=== PATIENT | female | born 1960 | race Caucasian/White ===

== ENCOUNTER → 2016-12-01 | Outpatient (CLI) | payer OTHER ==
[~2016-12-01] MED LIST: ASPI81TA82 PO; BIOTCAP PO; CARD240C6 PO; FISH1000 PO; FLOV44AE IN; LOSA25 PO; METO50TA PO; ROSU10 PO; VITA20003 PO; [UNRECOGNIZED DRUG - OTHER] PO
[2016-12-01 09:59] LABS: ALKALINE PHOSPHATASE 61 U/L (45-117); ALT (GPT) 79 U/L (10-53); ANION GAP 6 MEQ/L (5-15); AST (GOT) 39 U/L (15-37); BICARBONATE 28.7 MEQ/L (21.0-32.0); BLOOD UREA NITROGEN 19 MG/DL (7-18); CHLORIDE 105 MEQ/L (98-107); FREE T4 1.32 NG/DL (0.76-1.46); GLOMERULAR FILTRATION RATE 71 ML/MIN (>89); GLUCOSE,FASTING 162 MG/DL (74-99); HDL CHOLESTEROL 24.5 MG/DL (40.0-60.0); LDL CHOLESTEROL 116 MG/DL (0-99); POTASSIUM 3.9 MEQ/L (3.5-5.1); SODIUM (NA) 140 MEQ/L (136-145); TOTAL BILIRUBIN ADULT 0.3 MG/DL (0.2-1.0)
[2016-12-01 10:18] LABS: MICRO ALBUMIN RANDOM URINE RAW 19.8 MG/L (0.0-30.0)
[2016-12-01 10:34] LABS: HEMOGLOBIN A1a 0.6 %; HEMOGLOBIN A1b 1.6 %; HEMOGLOBIN Ao 84.4 %; HEMOGLOBIN LA1C 2.3 %; HEMOGLOBIN P3 3.7 %
[2016-12-01 13:42] LABS: FERRITIN 131 NG/ML (8-252); FOLLICLE STIMULATING HORMONE 55.4 mIU/mL; LUTEINIZING HORMONE 18.9 mIU/mL; TRANSFERRIN IRON PROFILE 292 MG/DL (200-360)
[2016-12-01 13:44] LABS: BHCG SCREEN QUALITATIVE 2 MIU/ML (0-5)
[2016-12-05 23:09] LABS: BIOAVAILABLE TESTOSTERONE 5.2 ng/dL (())
== END ==
LOC: PLAB 06:57
PROVIDERS: ATTEND Internal Medicine Endocrinology, Diabetes & Metabolism
DX: E78.5 Hyperlipidemia, unspecified (principal); E11.9 Type 2 diabetes mellitus without complications; I10 Essential (primary) hypertension; E03.9 Hypothyroidism, unspecified; E55.9 Vitamin D deficiency, unspecified; L25.9 Unspecified contact dermatitis, unspecified cause; Z79.899 Other long term (current) drug therapy
CPT/HCPCS: 80053; 80061; 82043; 82306; 82626; 82728; 83001; 83002; 83036; 83540; 83550; 84146; 84402; 84403; 84439; 84443; 84480; 84703; 86038

== ENCOUNTER → 2017-06-18 | Outpatient (CLI) | payer OTHER ==
[2017-06-18 13:39] LABS: ANION GAP 6 MEQ/L (5-15); AST (GOT) 24 U/L (15-37); BICARBONATE 28.1 MEQ/L (21.0-32.0); BLOOD UREA NITROGEN 23 MG/DL (7-18); CHLORIDE 106 MEQ/L (98-107); GLOMERULAR FILTRATION RATE 75 ML/MIN (>89); GLUCOSE,FASTING 120 MG/DL (74-99); POTASSIUM 4.6 MEQ/L (3.5-5.1); SODIUM (NA) 140 MEQ/L (136-145)
[2017-06-18 13:47] LABS: ALKALINE PHOSPHATASE 49 U/L (45-117); ALT (GPT) 43 U/L (10-53); LDL CHOLESTEROL 111 MG/DL (0-99); TOTAL BILIRUBIN ADULT 0.4 MG/DL (0.2-1.0)
[2017-06-18 14:25] LABS: HEMOGLOBIN A1a 1.3 %; HEMOGLOBIN A1b 0.8 %; HEMOGLOBIN F 0.8 %; HEMOGLOBIN P3 3.6 %
== END ==
LOC: OLAB 10:34
PROVIDERS: ATTEND Internal Medicine Endocrinology, Diabetes & Metabolism
DX: E78.5 Hyperlipidemia, unspecified (principal)
CPT/HCPCS: 80053; 80061; 83036

== ENCOUNTER → 2017-08-28 | Outpatient (CLI) | payer OTHER ==
[2017-08-28 12:48] LABS: BICARBONATE 28.8 MEQ/L (21.0-32.0); POTASSIUM 4.4 MEQ/L (3.5-5.1)
== END ==
LOC: OLAB 09:47
PROVIDERS: ATTEND Internal Medicine Cardiovascular Disease
DX: N18.1 Chronic kidney disease, stage 1 (principal)
CPT/HCPCS: 80048

== ENCOUNTER → 2017-09-10 | Outpatient (CLI) | payer OTHER ==
[2017-09-10 13:47] LABS: ALT (GPT) 40 U/L (10-53); ANION GAP 5 MEQ/L (5-15); AST (GOT) 23 U/L (15-37); BICARBONATE 30.1 MEQ/L (21.0-32.0); BLOOD UREA NITROGEN 16 MG/DL (7-18); CHLORIDE 103 MEQ/L (98-107); GLOMERULAR FILTRATION RATE 80 ML/MIN (>89); GLUCOSE,FASTING 101 MG/DL (74-99); POTASSIUM 4.2 MEQ/L (3.5-5.1); SODIUM (NA) 138 MEQ/L (136-145)
[2017-09-10 13:56] LABS: ALKALINE PHOSPHATASE 56 U/L (45-117); FREE T4 1.16 NG/DL (0.76-1.46); HDL CHOLESTEROL 31.5 MG/DL (40.0-60.0); LDL CHOLESTEROL 117 MG/DL (0-99); TOTAL BILIRUBIN ADULT 0.4 MG/DL (0.2-1.0)
[2017-09-10 17:14] LABS: HEMOGLOBIN A1a 1.1 %; HEMOGLOBIN A1b 0.8 %; HEMOGLOBIN Ao 84.8 %; HEMOGLOBIN F 0.9 %; HEMOGLOBIN LA1C 2.2 %; HEMOGLOBIN P3 3.9 %
== END ==
LOC: CLAB 12:47
PROVIDERS: ATTEND Internal Medicine Endocrinology, Diabetes & Metabolism
DX: E11.9 Type 2 diabetes mellitus without complications (principal); I10 Essential (primary) hypertension; E78.5 Hyperlipidemia, unspecified; E03.9 Hypothyroidism, unspecified; E55.9 Vitamin D deficiency, unspecified
CPT/HCPCS: 36415; 80053; 80061; 82306; 83036; 84439; 84443

== ENCOUNTER 2017-11-26 10:54 | Observation (INO) | payer OTHER ==
[2017-11-26] VITALS (7 sets, daily range): BP systolic 103–129; BP diastolic 63–80; PULSE 65–86; RESP 18–20; TEMP 98.2–99.1; O2SAT 94–96
[~2017-11-26] VITALS: Ht 165.1 cm; Wt 91.6 kg
[2017-11-26] MEDS ORDERED: CHLORHEXIDINE GLUCONATE 2 % 1 PACK (2 CLOTHS) TOPICAL PRN (11:45)
[2017-11-26] MEDS ORDERED: POVIDONE IODINE 5% (ANTISEPSIS KIT) 4 APPLICATIONS EACH NARE PRN (11:45)
[2017-11-26] MEDS ORDERED: SODIUM CHLORID 0.9% 500 ML IV PRN (11:45)
[2017-11-26] MEDS ORDERED: LACTATED RINGER'S 1000 ML IV PRN (11:45)
[2017-11-26] MEDS ORDERED: METOPROLOL TARTRATE 25 MG TAB PO PRN (11:45)
[2017-11-26] MEDS ORDERED: DEXAMETHASONE SOD PHOS 4 MG/ML VIAL IV ONE (12:00)
[2017-11-26] MEDS ORDERED: PROPOFOL 200 MG/20 ML AMP IV ONE (12:00)
[2017-11-26] MEDS ORDERED: SODIUM CHLORID 0.9% 500 ML INJ 500 ML IV ONE (12:00)
[2017-11-26] MEDS ORDERED: ONDANSETRON HCL 4 MG/2 ML VIAL IV ONE (12:00)
[2017-11-26] MEDS ORDERED: LIDOCAINE HCL 1% PF 5 ML SYRINGE OTHER ONE (12:00)
[2017-11-26] MEDS ORDERED: ROCURONIUM INJ 50 MG/5 ML SYRINGE IV PUSH ONE (12:00)
[2017-11-26 12:09] LABS: AUTOMATED NEUTROPHIL # 4.8 TH/MM3 (1.8-7.7); BASOPHIL # 0.1 TH/MM3 (0-0.2); BASOPHIL % 0.9 % (0.0-2.0); EOSINOPHIL # 0.2 TH/MM3 (0-0.4); EOSINOPHIL % 2.4 % (0.0-4.0); HEMATOCRIT 47.6 % (35.0-46.0); HEMOGLOBIN 16.7 GM/DL (11.6-15.3); LYMPH % 20.5 % (9.0-44.0); LYMPHOCYTE # 1.5 TH/MM3 (1.0-4.8); MEAN CELL VOLUME 89.6 FL (80.0-100.0); MEAN CORPUSCULAR HEMOGLOBIN 31.4 PG (27.0-34.0); MEAN PLATELET VOLUME 8.7 FL (7.0-11.0); MONO % 9.5 % (0.0-8.0); MONOCYTE # 0.7 TH/MM3 (0-0.9); NEUT % 66.7 % (16.0-70.0); PLATELET COUNT 241 TH/MM3 (150-450); RED BLOOD COUNT 5.31 MIL/MM3 (4.00-5.30); RED CELL DISTRIBUTION WIDTH 12.9 % (11.6-17.2); WHITE BLOOD COUNT 7.2 TH/MM3 (4.0-11.0)
[2017-11-26 12:19] LABS: INTERNATIONAL NORMALIZED RATIO 1.1 RATIO; PROTHROMBIN TIME - PATIENT 11.3 SEC (9.8-11.6)
[2017-11-26] MEDS ORDERED: SPIR100T PO (12:21)
[2017-11-26] MEDS ORDERED: OMEGCAP PO (12:21)
[2017-11-26] MEDS ORDERED: FLEC1TAB8 PO (12:21)
[2017-11-26] MEDS ORDERED: METO25TA3 PO (12:21)
[2017-11-26] MEDS ORDERED: ROSU10 PO (12:21)
[2017-11-26] MEDS ORDERED: ECASA81 PO (12:21)
[2017-11-26] MEDS ORDERED: LEXA10TA PO (12:21)
[2017-11-26] MEDS ORDERED: APIX5TAB PO (12:21)
[2017-11-26] MEDS ORDERED: BIOTCAP PO (12:21)
[2017-11-26] MEDS ORDERED: VITA10002 PO (12:21)
[2017-11-26] MEDS ORDERED: VITA2000 PO (12:21)
[2017-11-26] MEDS ORDERED: ZYRTEC PO (12:22)
[2017-11-26] MEDS ORDERED: IMIQ5CRE9 TOPICAL (12:22)
[2017-11-26 12:35] LABS: BICARBONATE 29.4 MEQ/L (21.0-32.0); CALCIUM 9.5 MG/DL (8.5-10.1); CREATININE 0.8 MG/DL (0.50-1.00)
[2017-11-26] MEDS ORDERED: HEPARIN-NS/PF FLUSH BAG 3,000 ML IV FLUSH ONE (13:35)
[2017-11-26] MEDS ORDERED: LEVOFLOXACIN 500 MG PREMIX INJ 100 ML IV ONE (14:00)
[2017-11-26] MEDS ORDERED: HEPARIN-D5W 25,000 U/250 ML 0 ML ONE (14:59)
[2017-11-26] MEDS ORDERED: HEPARIN SODIUM - IV 10,000 UNITS/10 ML VIAL ONE ×6 (15:00→16:22)
[2017-11-26] MEDS ORDERED: PROTAMINE SULFATE 50 MG/5 ML VIAL ONE (15:00)
[2017-11-26] MEDS ORDERED: VANCOMYCIN HCL 1000 MG VIAL ONE (16:30)
[2017-11-26] MEDS ORDERED: MIDAZOLAM HCL 2 MG/2 ML VIAL ONE (18:25)
[2017-11-26] MEDS ORDERED: oxyCODONE/ACETAMINOPHEN 5 MG/325 MG TAB PO PRN ×2 (18:30)
[2017-11-26] MEDS ORDERED: METOCLOPRAMIDE HCL 10 MG/2 ML VIAL IV PUSH PRN (18:30)
[2017-11-26] MEDS ORDERED: LIDOCAINE HCL 1% 50 ML VIAL INFIL PRN (18:30)
[2017-11-26] MEDS ORDERED: ATROPINE SULFATE 1 MG/ML VIAL IV PUSH PRN (18:30)
[2017-11-26] MEDS ORDERED: ONDANSETRON HCL 4 MG/2 ML VIAL IV PUSH PRN (18:30)
[2017-11-26] MEDS ORDERED: LORazepam 2 MG/ML VIAL IV PUSH PRN (18:30)
[2017-11-26] MEDS ORDERED: SODIUM CHLOR 0.9% 250 ML INJ 250 ML IV PRN (18:30)
[2017-11-26] MEDS ORDERED: BACITRACIN OINT 0.9 GM PKT TOP ONE (18:30)
[2017-11-26] MEDS ORDERED: IBUPROFEN 600 MG TAB PO PRN (18:45)
--- NOTE | 2017-11-26 19:01 | CATHPROC ---
[facility] HIS Report Study Information Study Number Admission Scheduled Start Study Start [id number] Nov 26 2017 10:54AM 11/26/2017 Nov 26 2017 1:56PM [place] [facility] Electrophysiology Study Admit Source Facility Department Other [facility] - Damage Appraiser Physician and Clinical Staff Initial MD Avilez, Aliyah Ccu Nurse Carlotta Thomas RCIS Other Anesthesia, PVC MONITOR Recorder Deana Ortiz,RN Scrub Devendra Negrete,RT(R) Procedures Performed Procedure Location (Site) Vessel Name CRYO Ablation LIPV LIPV CRYO Ablation LSPV LSPV CRYO Ablation RIPV RIPV CRYO Ablation RSPV RSPV ICE CATHETER INSERT RA Atruim Venogram LSPV LSPV Venogram LT. ATRIUM LT. 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 Description Size Mfg Part Number Used/Scraped COPILOT VALVE, BLEEDBACK [id number] 16:48 [employer] Used CONTROL *[id number] 13:56 ARGON/MAXXIM DRAPE, BRACHIAL REINFORCED * Used *[id number] 15:00 ARGON/MAXXIM DRAPE, BRACHIAL REINFORCED * Used *[id number] [employer]/ EP [id number] 13:56 KIT, TRANSDUCER / AFIB Used PACER *[id number] SHEATH SET, FR12 CHECK-MARCO [id number]-[id number]-[id number] 14:40 COOK/PACER FR12 Used 13CM *[id number] 16:31 COOK/PACER DILATOR SET (MICRA) FR8-12 Used *[id number] WIRE, GUIDE AMPLATZ STIFF [id number] 13:56 COOK/PACER 3MMJ Used 180CM *[id number] 13:56 MEDLINE INDUST[employer] PACK, CCL CUSTOM * Used *8310399 13:56 tripJane PACER SCHMIDT, LIMB * 2530 *[id number] Used 13:56 [employer] MEDICAL PACER SHEATH, FR8.5 MERIT 11CM FR 8.5 [id number] Used 13:56 [employer] MEDICAL PACER SHEATH, FR8.5 MERIT 11CM FR 8.5 [id number] Used 13:56 [employer] MEDICAL PACER SHEATH, FR8.5 MERIT 11CM FR 8.5 [id number] Used PROBE COVER, STERILE [id number] 13:56 Branch2 * Used ULTRASOUND W/ GEL *[id number] PROBE COVER, STERILE [id number] 15:50 [employer]ICAL * Used ULTRASOUND W/ GEL *[id number] 14:39 NAMIC MANIFOLD, 4 PORT * Used *2583546 14:45 NYCOMED OMNIPAQUE, 300 MG, 150ML 150ML [id number] Used [id number] 13:56 [employer] BLANKET,WARM AIR CCL * Used *[id number] 985239 13:56 [facility] CATHETER, FR7 DUODECA FR 7 Used *2880707 524782 16:05 [facility] MEDICAL CATHETER, JSN, QUAD FR 5 Used *1536242 ZM4121 13:56 [facility] MEDICAL ELECTRODE KIT, ALEXA X SURFACE * Used *7994198 13:56 [facility] MEDICAL NEEDLE, BRK ADULT 18GA. 71CM 71CM [id number] Used 14:40 [facility] MEDICAL SET, [place] TUBING 15403 *2229632 Used 188239 14:38 [facility] MED[facility] SHEATH, EPS, FR5 FAST CATH FR 5 Used *9923125 13:56 [facility] MEDICAL SHEATH, FR8 DEGROOT [id number] Used CATHETER, ACUNAV FR10 ICE [id number] 16:04 FORREST FR 10 Used (FORREST) *[id number] [employer]ICAL 14:38 SHEATH, FR10 TURUMO FR 10 [id number] Used COMPANY [facility] PAD, ELECTROSURGICAL 13:56 * E7506 *6532418 Used SURGICAL GROUNDING (BLUE) [facility] PAD, ELECTROSURGICAL 13:56 * E7506 *9326455 Used SURGICAL GROUNDING (BLUE) [facility] PAD, ELECTROSURGICAL 13:56 * E7507 *0072026 Used SURGICAL GROUNDING ORANGE 13:56 [employer] PENCIL, ELECTROSURGICAL * [id number] Used BALLOON, ARCTIC FRONT [id number] 16:38 VITATRON [employer] Used ADVANCE 28MM *[id number] BALLOON, ARCTIC FRONT [id number] 16:46 [employer] Used ADVANCE 28MM *[id number] CATHETER, ACHEIVE MAPPING 2ACH20 14:39 [employer]RON [employer] 20MM Used 20MM *[id number] CATHETER, ACHEIVE MAPPING 2ACH20 16:49 [employer] 20MM Used 20MM *[id number] 16:53 [employer] COAXIAL UMBILICAL 203CXC Used 14:39 [employer] COAXIAL UMBILICAL 203CXC Used 14:39 [employer] ELECTRICAL UMBILICAL 2035UC Used SHEATH, FR12 FLEXCATH 14:38 [employer]RON [employer] FR 12 4FC12 Used STEERABLE Equipment Model, Serial, Lot Number and Expiration Data Description Model Number Serial Number Lot Number Expiration Date DILATOR SET (MICRA) [id number] 05-28-2020 PROBE COVER, STERILE [id number] 12-03-2020 ULTRASOUND W/ GEL History: Allergies Allergy Reaction No Known Allergies History: Risk Factors Hypertension Dyslipidemia Yes Yes Labs Hgb (g/dl) Hct (%) RBC (MIL/MM3) WBC (l/cumm) Platelets (thousands) 11.60-17.00 35.00-51.00 4.00-5.90 4.00-11.00 150.00-450.00 16.0 47 5.3 7.2 241 Glucose (mg/dl) BUN (mg/dl) Creatinine (mg/dl) BUN:Creatinine (1:x) 74.00-106.00 7.00-18.00 0.50-1.30 10.00-20.00 129 16 0.8 20 Na (meq/l) K (meq/l) 136.00-145.00 3.50-5.10 137 4.3 INR (PTT:PT) 0.90-1.10 1.1 Medication Medication Total Dose (Bolus/Oral) Medication Total Dosage/Unit 1% XYLOCAINE 40 mL HEPARIN 86445 units PROTAMINE 40 mg Medications (Bolus/Oral) Medication Time Given Dosage/Unit Administered By Reason 1% XYLOCAINE 11/26/2017 3:52:56 PM 20 mL Aliyah Avilez 20 mL 1% XYLOCAINE given in lab by Aliyah Avilez in Right Groin via Subcutaneous. 1% XYLOCAINE 11/26/2017 3:55:39 PM 20 mL Aliyah vAilez 20 mL 1% XYLOCAINE given in lab by Aliyah Avilez in Left Groin via Subcutaneous. HEPARIN 11/26/2017 4:07:51 PM 13569 units Anesthesia, PVC MONITOR As per physicians v erbal order 23013 units HEPARIN given in lab by Anesthesia, PVC MONITOR via Peripheral IV. Ordered by Aliyah Avilez. Tiki son: As per physicians verbal order. PROTAMINE 11/26/2017 6:12:17 PM 40 mg Anesthesia, PVC MONITOR As per physicians romina bal order 40 mg PROTAMINE given in lab by Anesthesia, PVC MONITOR via Peripheral IV. Ordered by Aliyah Avilez. Reason: As per physicians verbal order. Medication (Drip) Medication Time Given Dosage/Unit Concentration/Unit Diluent (ml) Solution HEPARIN DRIP STOPPED 11/26/2017 6:14:10 PM 0 units/hr 0 HEPARIN DRIP STOPPED given in lab by Anesthesia, PVC MONITOR. Pump/Drip Flow = 0 ml/hr using . Ordered by Aliyah Lino. ISUPREL 11/26/2017 5:45:29 PM 20 mcg/min 1 mg 250 NaCl .9 20 mcg/min ISUPREL given in lab by Anesthesia, PVC MONITOR via Peripheral IV. Pump/Drip Flow = 300 ml/hr usi ng NaCl .9 with a concentration of 1 mg in 250 ml. Ordered by Aliyah Avilez. Reason: As per physicians verbal order. VANCOMYCIN DRIP 11/26/2017 4:37:40 PM 1 g 1 g VANCOMYCIN DRIP given in lab by Anesthesia, PVC MONITOR via Peripheral IV. Ordered by Aliyah Avilez. Tiki son: As per physicians verbal order. Initial Case Assessment Cardiovascular HR Rhythm NIBP Chest Pain 72 sr 112/68 0 Edema Present Skin color Skin None Normal Warm Dry Circulatory - Right Pulses Dorsalis Pedis 1 Scale (0,1,2,3,4,d) Circulatory - Left Pulses Dorsalis Pedis 1 Scale (0,1,2,3,4,d) Circulatory - Lower Extremities Color Lower Right Color Lower Left Normal Normal Neurological State Oriented to time-place- Alert Moves all extremities person Respiration - General Respiration Rate SpO2 (%) (B/min) 18 96 Final Case Assessment Cardiovascular HR Rhythm NIBP Chest Pain 95 sr 147/89 0 Edema Present Skin color Skin None Normal Warm Dry Neurological State Oriented to time-place- Lethargic Moves all extremities person Respiration - General Respiration Rate SpO2 (%) O2 (lpm) (B/min) 14 96 2 Chronological Log Time Study Chronological Log 14:53:26 Patient arrived via Bed. 14:53:26 Patient Name, D.O.B, / Armband Verified By R.N. 14:53:27 Consent signed by the physician and the patient and verified by the Damage Appraiser staff. 14:53:28 Pre-op and post- op instructions given; patient acknowledges understanding of instructions. 14:53:29 Verbal Stimulation=2 Physical Stimulation=2 Airway=2 Respiration=2 TOTAL=8. (0=absent, 1=li mited, 2=present) 14:53:29 Anesthesia at bedside. Assumes care of patient. 14:53:35 Patient has been NPO for More than 6Hrs. 14:53:36 Skin Breakdown- none per pt 14:53:36 Patient Warmer Placed on the Table. 14:53:37 Disposable Defibrillator Pads Placed On Patient. 14:53:39 Theresa Prominences Protected 14:53:42 A # 20 IV was noted in the Antecubital (left). Grade = 0 0.9ns kvo 14:53:44 History and physical on the chart or being dictated. 14:54:26 A # 20 IV was noted in the Antecubital (right). Grade = 0 0.9ns kvo 14:54:56 [facility] rep present. Assessment: Initial Case, HR=72 BPM, Rhythm=sr, LZUE=385/68 mmhg, Chest Pain=0, Edema=None, Col or=Normal, Skin = Warm, Dry Right Pulses: Fortino Ped=1 Left Pulses: Fortino Ped=1 15:15:02 Lower Right Extremities: Color=Normal Lower Left Extremities: Color=Normal Neurological: State=Alert, Ox3, MCNEAL Respiration: Resp=18 B/min, SpO2=96 % 15:15:43 Table restraints applied according to hospital policy 15:15:59 Bilateral groins prepped with 2% chlorhexidine, and draped after a 3 minute waiting time. 15:22:09 Pressure channel 2 zeroed. 15:27:14 Anesthesiologist present for intubation. 15:31:00 Reference ECG taken 15:41:50 MD arrived. Pt intubated. Time Out. Correct patient, procedure, procedure equipment, site and side verified with physicia n present. Time 15:52:00 concurred by MD, individual staff and PVC MONITOR. Time Out #2 - Consents verified, patient in correct position, all results are labled and displa yed, safety precautions 15:52:21 taken, antibiotics administered. Time out concurred by MD, individual staff and PVC MONITOR in procedu re 15:52:37 Case Start 15:52:56 20 mL 1% XYLOCAINE given in lab by Aliyah Avilez in Right Groin via Subcutaneous. 15:55:00 Vascular access was obtained in the Fem Vein (right). 15:55:11 A SHEATH, FR8.5 MERIT 11CM FR 8.5 was advanced into the Fem Vein (right) using the Modified Seldinger technique. 15:55:39 20 mL 1% XYLOCAINE given in lab by Aliyah Avilez in Left Groin via Subcutaneous. 15:55:47 Vascular access was obtained in the Fem Vein (left). 15:55:56 Vascular access was obtained in the Fem Vein (left). 15:56:16 A SHEATH, FR10 TURUMO FR 10 was advanced into the Fem Vein (left) using the Modified Seldin rocio technique. 15:56:40 A SHEATH, EPS, FR5 FAST CATH FR 5 was advanced into the Fem Vein (left) using the Modified Seldinger technique. 15:57:29 Vascular access was obtained in the Jugular Vein (right). 16:01:57 A SHEATH, FR8.5 MERIT 11CM FR 8.5 was advanced into the Jugular Vein (right) using the Perc utaneous technique. A CATHETER, FR7 DUODECA FR 7 was advanced vis Jugular Vein (right) and placed in the CS. Placem ent was visually 16:02:08 confirmed under fluoroscopy. via hra 16:03:50 CATHETER, ACUNAV FR10 ICE (FORREST) FR 10 Was Postioned. LFV A CATHETER, JSN, QUAD FR 5 was advanced vis Fem Vein (left) and placed in the RVA. Placement wa s visually 16:04:11 confirmed under fluoroscopy. 49006 units HEPARIN given in lab by Anesthesia, PVC MONITOR via Peripheral IV. Ordered by Marilyn Avilez Reason: As per 16:07:51 physicians verbal order. 16:08:15 EPS in progress. 16:14:06 Quad moved to diapragm to verify stimulation. 16:14:15 Activated Clotting Time Drawn A sheath was exchanged in the Fem Vein (right). This was necessary in order for catheter suppor t. degroot exchanged 16:15:00 for amplatz 16:15:52 Transeptal needle going into Degroot. 16:16:41 A BRK needle was advanced to the right atrium and passed through the septal wall to the lef t atrium. The LT. ATRIUM was manually injected with 5 cc's of contrast. OMNIPAQUE, 300 MG, 150ML 150ML us ed. To verify 16:16:47 transeptal placement. 16:24:20 A WIRE, GUIDE AMPLATZ STIFF 180CM 3MMJ was inserted into Madi sheath via Fem Vein (right ). A SHEATH, FR12 FLEXCATH STEERABLE FR 12 was exchanged in the Fem Vein (right). This was necessa ry in order to 16:27:38 accomodate a larger catheter. 16:27:43 Activated Clotting Time Drawn 16:29:15 ACT (Normal Range 90-180) = 355 16:31:01 12 fr over amplatz FVR A DILATOR SET (MICRA) FR8-12 was exchanged in the Fem Vein (right). This was necessary in order to accomodate a 16:31:30 larger catheter. 16:31:48 16fr out flexsheath in FVR 16:32:17 Flexsheath crossed A SHEATH, FR12 FLEXCATH STEERABLE FR 12 was advanced into the Fem Vein (right) using the Jessicaifdiane Callawaydinger 16:32:55 technique. A BALLOON, ARCTIC FRONT ADVANCE 28MM was inserted over WIRE, GUIDE AMPLATZ STIFF 180CM 3MMJ via the 16:34:10 Fem Vein (right). A CATHETER, ACHEIVE MAPPING 20MM 20MM was advanced vis Fem Vein (right) and placed in the LA. P lacement was 16:34:25 visually confirmed under fluoroscopy. 1 g VANCOMYCIN DRIP given in lab by Anesthesia, PVC MONITOR via Peripheral IV. Ordered by Marilyn Avilez Reason: As per 16:37:40 physicians verbal order. 16:40:31 Heparin drip at 1100units /hr connected to 10 FR Sheath left FV. A 2nd BALLOON, ARCTIC FRONT ADVANCE 28MM was exchanged with new Achieve Mapping catheter via th e Fem Vein 16:45:25 (right). A 2nd CATHETER, ACHEIVE MAPPING 20MM 20MM was advanced vis Fem Vein (right) and placed in the L A. Placement 16:48:46 was visually confirmed under fluoroscopy. 16:50:42 Cryo Ablation of the LSPV with a BALLOON, ARCTIC FRONT ADVANCE 28MM. 1st 16:58:05 The LSPV was manually injected with ~CC'S~ cc's of contrast. contrast used. 17:00:37 Cryo Ablation of the LSPV with a BALLOON, ARCTIC FRONT ADVANCE 28MM. 17:06:40 Cryo Ablation of the LIPV with a BALLOON, ARCTIC FRONT ADVANCE 28MM. 1st 17:09:27 Activated Clotting Time Drawn 17:11:23 ACT (Normal Range 90-180) = 349 17:18:06 Cryo Ablation of the LIPV with a BALLOON, ARCTIC FRONT ADVANCE 28MM. 17:21:53 Diaphragm pacing in progress. 17:27:09 Cryo Ablation of the RSPV with a BALLOON, ARCTIC FRONT ADVANCE 28MM. 17:32:24 The RIPV was manually injected with 5 cc's of contrast. OMNIPAQUE, 300 MG, 150ML 150ML used . 17:32:59 Cryo Ablation of the RIPV with a BALLOON, ARCTIC FRONT ADVANCE 28MM. 1st 17:37:37 The RIPV was manually injected with 5 cc's of contrast. OMNIPAQUE, 300 MG, 150ML 150ML used . 17:37:50 Cryo Ablation of the RIPV with a BALLOON, ARCTIC FRONT ADVANCE 28MM. 20 mcg/min ISUPREL given in lab by Anesthesia, PVC MONITOR via Peripheral IV. Pump/Drip Flow = 300 ml/ hr using NaCl .9 17:45:29 with a concentration of 1 mg in 250 ml. Ordered by Aliyah Avilez. Reason: As per physicians romina bal order. 17:55:36 Isuprel off 18:03:15 Cryo ablation on mechelle in progress. A SHEATH SET, FR12 CHECK-MARCO 13CM FR12 was exchanged in the Fem Vein (right). This was necessar y in order to 18:09:34 achieve vascular hemostasis. 18:10:36 Catheter(s) removed without difficulty 40 mg PROTAMINE given in lab by Anesthesia, PVC MONITOR via Peripheral IV. Ordered by Aliyah Avilez. R roberto: As per 18:12:17 physicians verbal order. HEPARIN DRIP STOPPED given in lab by Anesthesia, PVC MONITOR. Pump/Drip Flow = 0 ml/hr using . Ordered by Raghav 18:14:10 Aliyah. 18:16:43 Activated Clotting Time Drawn 18:19:16 ACT (Normal Range 90-180) = 120 18:20:09 Left femoral sheaths removed; pressure applied to access site. 18:23:57 Right femoral sheath removed; pressure applied to access site. 18:28:24 Right IJ sheath removed; pressure applied to access site. 18:31:40 No case complications noted. 18:31:41 Cine recording checked. 18:31:44 Bedside Report will be given. 18:31:48 PACU called. Spoke to Marisela 18:56:39 Defibrillator and ground pads removed. Skin intact. 18:57:09 patient exubated per anesthesia 18:57:21 Case End 18:57:35 Sterile dressing applied to all sites Assessment: Final Case, HR=95 BPM, Rhythm=sr, QSCV=241/89 mmhg, Chest Pain=0, Edema=None, Color =Normal, Skin = Warm, Dry 18:57:50 Neurological: State=Lethargic, Ox3, MCNEAL Respiration: Resp=14 B/min, SpO2=96 %, O2=2 lpm 19:05:20 Patient moved to stretcher End Study - Contrast Media Used In Study Contrast Total Opened (mL) Total Used (mL) Total Wasted (mL) Omnipaque 50 50 0 End Study - Maximum Contrast Load Max Contrast Load (mL) 566.8 End Study - Radiation Exposure Fluoro Time (minutes) 9.6 End Study - Patient Disposition Complications Transferred To Interventional Outcome No Telemetry Bed successful
[2017-11-26] MEDS ORDERED: DO NOT ADM ANY ANTICOAGULANT DRUGS PRN (19:12)
[2017-11-26 20:24] LABS: BICARBONATE 23.3 MEQ/L (21.0-32.0); CALCIUM 8.6 MG/DL (8.5-10.1); CREATININE 0.96 MG/DL (0.50-1.00)
[2017-11-26] MEDS: PANTOPRAZOLE SOD 40 MG DELAYED RELEASE TAB PO SCH (21:37)
[2017-11-26] MEDS: APIXABAN 5 MG TABLET PO SCH ×2 (21:43→23:44)
[2017-11-27] VITALS (14 sets, daily range): BP systolic 91–95; BP diastolic 52–54; PULSE 61–86; RESP 14–19; TEMP 98.2–98.4; O2SAT 95–98
--- NOTE | 2017-11-27 03:31 | MA ---
cc: Aliyah Avilez MD, Jason CLINICAL INDICATION: The patient is a 57-year-old lady with very symptomatic paroxysmal atrial fibrillation. She is very symptomatic with breakthroughs despite the usage of antiarrhythmic medication, flecainide, thus patient came in for EP study and possible ablation. PROCEDURE IN DETAIL: The patient was sedated by anesthesiologist using general anesthesia. The patient was prepped and draped in sterile fashion. The right femoral vein was accessed and 8 Macedonian sheath was placed. We also accessed the left femoral vein using 10.5 sheath and a 5 Macedonian sheath. We did access right IJ using ultrasound guidance and 8 Macedonian sheath was obtained. DuoDecapolar catheter was inserted into the CS. We also put a quadripolar catheter into RVM His. We did obtain the basic EP study with recording of LV activity. The patient is in sinus with cycle length 826 milliseconds, NJ is 140 milliseconds, QRS 50 milliseconds. QTC is 350 milliseconds. AH is 80 milliseconds. Atria is 58 milliseconds. AV Wenckebach is 400 milliseconds, VA Wenckebach is more than 600 milliseconds. Again we did an EP study with recording of activity including airway activity. Then we proceeded with atrial fibrillation ablation. The intracardiac ultrasound was inserted through the left femoral vein 10.5 Macedonian sheath. We then visualized all cardiac structures including LV, RV, pulmonary veins, mitral valve, tricuspid valve, pericardium. The quadripolar catheter was advanced to SVC RA junction and was used for further check of diaphragmatic stimulation. Using a single transseptal technique, the transeptal was obtained using ultrasound guidance along with contrast injection. We did exchange of sheath through the flex sheath and 28 mm cryoballoon along with the sheath was utilized. The esophageal probe probe was inserted to monitor the temperature in the esophagus. Heparin was given to keep ACT above 325. Using cryoablation, we were able to isolate all the 4 pulmonary veins with help of contrast injection along with help of intracardiac ultrasound. Then we proceeded with further ablation in other areas for other foci of atrial fibrillation including mechelle, some part of the posterior wall and inferior septal region. Afterwards the patient was started on isoproterenol for about 20 minutes. With high concentration so far there is no induced arrhythmia was noted even with CS burst up pacing up to 210 milliseconds. Then we concluded the study. Sheaths were removed using manual pressure after giving protamine to reverse anticoagulation. So far the patient tolerated the procedure without any problems. CONCLUSION: 1. Complete electrophysiology study with recording of left atrial activity. So far there is no bypass tract. 2. Pulmonary vein isolation using a cryoballoon 28 mm Medtronic. 3. Additional ablation of other foci for atrial fibrillation including mechelle, part of the posterior wall and inferior septum of the left atrium. 4. Usage of intracardiac ultrasound. 5. Transseptal puncture using ultrasound guidance and contrast injection. 6. Serial ACT to keep ACT above 325. 7. Isuprel drug testing and programmed stimulation. ESTIMATED BLOOD LOSS: About 20 mL. PLAN: The patient will be continued on Eliquis overnight and plan to discharge home tomorrow. Aliyah Avilez MD HW/rt , 06:36 PM , 03:21 AM Thank you, Dr. Arzate. NANDA
[2017-11-27 06:03] LABS: BICARBONATE 25.3 MEQ/L (21.0-32.0); CALCIUM 8.3 MG/DL (8.5-10.1); CREATININE 0.74 MG/DL (0.50-1.00)
[2017-11-27] MEDS ORDERED: IBUP-232 PO (08:37)
[2017-11-27] MEDS: PANTOPRAZOLE SOD 40 MG DELAYED RELEASE TAB PO SCH (08:39)
[2017-11-27] MEDS: APIXABAN 5 MG TABLET PO SCH (08:39)
[2017-11-27] MEDS ORDERED: PROT40TA PO (08:44)
--- NOTE | 2017-11-27 22:00 | EKG ---
Date Performed: 11/27/2017 Time Performed: 06:40:28 PTAGE: 57 years EKG: Sinus rhythm Low QRS voltages in precordial leads Borderline ECG PREVIOUS TRACING : 11/26/2017 19.29 Since the prior tracing, there has been no significant bassett DOCTOR: Siobhan Clarke Interpretating Date/Time 11/27/2017 21:59:33
--- NOTE | 2017-11-27 22:36 | EKG ---
Date Performed: 11/26/2017 Time Performed: 19:29:56 PTAGE: 57 years EKG: Sinus rhythm NORMAL ECG PREVIOUS TRACING : 11/26/2017 12.10 Since the prior tracing, there has been no significant bassett DOCTOR: Siobhan Clarke Interpretating Date/Time 11/27/2017 22:34:10
--- NOTE | 2017-11-27 22:52 | EKG ---
Date Performed: 11/26/2017 Time Performed: 12:10:52 PTAGE: 57 years EKG: Sinus bradycardia. Septal T wave changes are nonspecific Borderline ECG PREVIOUS TRACING : 01/21/2016 11.48 Since the prior tracing, there has been no significant bassett DOCTOR: Siobhan Clarke Interpretating Date/Time 11/27/2017 22:50:43
== END 2017-11-27 11:48 | disposition home or self-care (01) ==
LOC: HDOC 10:54 → HDIC 10:54 → HDOC 19:52 → HDIC 19:53 → HCPC 19:53
PROVIDERS: ADMIT Internal Medicine Cardiovascular Disease; ATTEND Internal Medicine Cardiovascular Disease
DX: I48.0 Paroxysmal atrial fibrillation (principal); R00.1 Bradycardia, unspecified; I10 Essential (primary) hypertension; E78.5 Hyperlipidemia, unspecified; K21.9 Gastro-esophageal reflux disease without esophagitis; Z85.828 Personal history of other malignant neoplasm of skin; Z79.899 Other long term (current) drug therapy; Z79.82 Long term (current) use of aspirin
CPT/HCPCS: 80048; 84702; 85002; 85025; 85610; 85730; 86850; 86900; 86901; 93005; 93613; 93623; 93656; 93662; 96374; C1730; C1732; C1733; C1759; C1766; C2630; G0378; J1100; J1644; J1956; J2250; J2405; J2720; J3010; J3370; J7040

== ENCOUNTER 2018-01-25 14:50 | Inpatient (IN) | payer OTHER ==
[2018-01-25] VITALS (9 sets, daily range): BP systolic 11–146; BP diastolic 53–89; PULSE 78–137; RESP 16–18; TEMP 97.9–98.9; O2SAT 94–97
[~2018-01-25] VITALS: Ht 175.3 cm; Wt 92.0 kg
[~2018-01-25 14:50] MED LIST changes: +APIX5TAB PO; -ASPI81TA82 PO; -CARD240C6 PO; -FISH1000 PO; +FLEC1TAB8 PO; -FLOV44AE IN; +IBUP-232 PO; +IMIQ5CRE9 TOPICAL; +LEXA10TA PO; -LOSA25 PO; -METO50TA PO; +OMEGCAP PO; +PROT40TA PO; +VITA10002 PO; +VITA2000 PO; -VITA20003 PO; +ZYRTEC PO; -[UNRECOGNIZED DRUG - OTHER] PO
[2018-01-25] MEDS ORDERED: SODIUM CHLORIDE 0.9% FLUSH 10 ML FLUSH IVF PRN (15:15)
[2018-01-25] MEDS ORDERED: DILTIAZEM HCL 25 MG/5 ML VIAL IV ONE (15:15)
--- NOTE | 2018-01-25 15:30 | PD ---
HPI Chief Complaint: Chest Pain Time Seen by Provider: 15:01 Travel History International Travel<30 days: No Contact w/Intl Traveler<30days: No Traveled to known affect area: No History of Present Illness HPI 57 y/o female presents with presents with central chest pressure and shortness of breath that started last night with associated palpitations. She states she has been out of A. fib since she had an ablation earlier this year with Dr. Recinos. She states before that she was on Cardizem but now she is only on flecainide. She states they recently restarted her on her Spironolactone to try to prevent going back into A. fib. She states that she follows with Dr. Recinos regularly. She denies specific modifying factors. She denies worsening of her asthma symptoms. She denies any other concurrent complaints. Quality is pressure. Severity is moderate. Duration since last night. PFSH Past Medical History Hx Anticoagulant Therapy: Yes (ELIQUIS) Arthritis: Yes Asthma: Yes Atrial Fibrillation: Yes Cancer: Yes (SKIN) Cardiovascular Problems: Yes High Cholesterol: Yes Chest Pain: No Diabetes: Yes (PREDIABETIC) Diminished Hearing: No Deep Vein Thrombosis: Yes Endocrine: No Gastrointestinal Disorders: Yes (HX POLYPS COLON) GERD: Yes Glaucoma: No Genitourinary: No Hepatitis: No Hiatal Hernia: No Hypertension: Yes Immune Disorder: No Musculoskeletal: Yes (HERNIATED DISC NECK AND BACK) Neurologic: No Psychiatric: No Reproductive: No Respiratory: Yes (SLEEP APNEA, ASTHMA) Integumentary: No Migraines: Yes (2012) Sleep Apnea: Yes Thyroid Disease: Yes (NODULES) Menopausal: Yes Past Surgical History Abdominal Surgery: Yes (APPY, SRIRAM.) AICD: No Appendectomy: Yes Body Medical Devices: BREAST AUG. Cholecystectomy: Yes Gynecologic Surgery: Yes (HYSTERECTOMY) Hysterectomy: Yes Joint Replacement: No Oral Surgery: Yes (DENTAL SX.) Pacemaker: No Thoracic Surgery: Yes (BREAST AUG.) Tonsillectomy: Yes Other Surgery: Yes Social History Alcohol Use: Yes (socially) Tobacco Use: No Substance Use: No Allergies-Medications (Allergen,Severity, Reaction): Coded Allergies: No Known Allergies (Unverified Allergy, Unknown, 11/26/17) Reported Meds & Prescriptions Reported Meds & Active Scripts Active Ibuprofen 600 Mg Tab 600 Mg PO Q6H PRN 7 Days Reported Coq10 (Coenzyme Q10 (Ubidecarenone)) 50 Mg Cap 50 Mg PO DAILY Singulair (Montelukast Sodium) 10 Mg Tab 10 Mg PO HS Imiquimod Topical (Imiquimod) 5% Cream 1 Applic TOPICAL HS [Zyrtec] 10 Mg PO DAILY Vitamin D3 (Cholecalciferol) 2,000 Unit Cap 2,000 Units PO BID Vitamin B-12 (Cyanocobalamin) 1,000 Mcg Tab 1,000 Mcg PO DAILY Eliquis (Apixaban) 5 Mg Tab 5 Mg PO BID Lexapro (Escitalopram Oxalate) 10 Mg Tab 10 Mg PO DAILY Flecainide (Flecainide Acetate) 50 Mg Tab 50 Mg PO BID [place]-3 Fish Oil/Vitamin (Fish Oil-Cholecalciferol) 1,000-1,000 Mg Cap 1 Cap PO DAILY Crestor (Rosuvastatin Calcium) 10 Mg Tab 10 Mg PO DAILY Biotin 5 Mg Cap 5 Mg PO Review of Systems Except as stated in HPI: all other systems reviewed are Neg Physical Exam Narrative GENERAL: 57-year-old female in no apparent distress SKIN: Focused skin assessment warm/dry. HEAD: Atraumatic. Normocephalic. EYES: Pupils equal and round. No scleral icterus. No injection or drainage. ENT: No nasal bleeding or discharge. Mucous membranes pink and moist. NECK: Trachea midline. CARDIOVASCULAR: irregular rate and rhythm. RESPIRATORY: No accessory muscle use. Clear to auscultation. Breath sounds equal bilaterally. GASTROINTESTINAL: Abdomen soft, non-tender, nondistended. MUSCULOSKELETAL: No obvious deformities. No clubbing. No cyanosis. NEUROLOGICAL: Awake and alert. No obvious cranial nerve deficits. Motor grossly within normal limits. Normal speech. PSYCHIATRIC: Appropriate mood and affect; insight and judgment normal. Data Data Last Documented VS Vital Signs Date Time Temp Pulse Resp B/P (MAP) Pulse Ox O2 Delivery O2 Flow Rate FiO2 01/25/18 18:02 123 106/54 01/25/18 16:16 16 96 Room Air 01/25/18 14:54 98.9 Orders Orders Electrocardiogram (01/25/18 15:06) B-Type Natriuretic Peptide (01/25/18 15:06) Ckmb (Isoenzyme) Profile (01/25/18 15:06) Complete Blood Count With Diff (01/25/18 15:06) Comprehensive Metabolic Panel (01/25/18 15:06) D-Dimer (01/25/18 15:06) Magnesium (Mg) (01/25/18 15:06) Prothrombin Time / Inr (Pt) (01/25/18 15:06) Act Partial Throm Time (Ptt) (01/25/18 15:06) Troponin I (01/25/18 15:06) Chest, Single Ap (01/25/18 15:06) Ecg Monitoring (01/25/18 15:06) Bilateral Bp Monitoring (01/25/18 15:06) Iv Access Insert/Monitor (01/25/18 15:06) Oximetry (01/25/18 15:06) Sodium Chloride 0.9% Flush (Ns Flush) (01/25/18 15:15) Diltiazem Inj (Cardizem Inj) (01/25/18 15:15) Esmolol Drip Inj Premix (Brevibloc Drip (01/25/18 15:15) CKMB (01/25/18 15:05) CKMB% (01/25/18 15:05) Acetaminophen (Tylenol) (01/25/18 18:00) Admit Order (Ed Use Only) (01/25/18 18:38) Labs Laboratory Tests Test 01/25/18 15:05 White Blood Count 13.0 TH/MM3 Red Blood Count 5.43 MIL/MM3 Hemoglobin 16.6 GM/DL Hematocrit 47.8 % Mean Corpuscular Volume 88.1 FL Mean Corpuscular Hemoglobin 30.7 PG Mean Corpuscular Hemoglobin Concent 34.8 % Red Cell Distribution Width 12.7 % Platelet Count 255 TH/MM3 Mean Platelet Volume 8.5 FL Neutrophils (%) (Auto) 69.2 % Lymphocytes (%) (Auto) 16.5 % Monocytes (%) (Auto) 12.9 % Eosinophils (%) (Auto) 0.9 % Basophils (%) (Auto) 0.5 % Neutrophils # (Auto) 9.0 TH/MM3 Lymphocytes # (Auto) 2.1 TH/MM3 Monocytes # (Auto) 1.7 TH/MM3 Eosinophils # (Auto) 0.1 TH/MM3 Basophils # (Auto) 0.1 TH/MM3 CBC Comment DIFF FINAL Differential Comment Prothrombin Time 10.5 SEC Prothromb Time International Ratio 1.0 RATIO Activated Partial Thromboplast Time 26.9 SEC D-Dimer Quantitative (PE/DVT) 0.34 MG/L FEU Blood Urea Nitrogen 14 MG/DL Creatinine 0.77 MG/DL Random Glucose 124 MG/DL Total Protein 8.4 GM/DL Albumin 4.3 GM/DL Calcium Level 9.4 MG/DL Magnesium Level 2.0 MG/DL Alkaline Phosphatase 57 U/L Aspartate Amino Transf (AST/SGOT) 21 U/L Alanine Aminotransferase (ALT/SGPT) 40 U/L Total Bilirubin 0.7 MG/DL Sodium Level 140 MEQ/L Potassium Level 3.9 MEQ/L Chloride Level 106 MEQ/L Carbon Dioxide Level 22.0 MEQ/L Anion Gap 12 MEQ/L Estimat Glomerular Filtration Rate 77 ML/MIN Total Creatine Kinase 175 U/L Creatine Kinase MB 0.8 NG/ML Troponin I LESS THAN 0.02 NG/ML B-Type Natriuretic Peptide 88 PG/ML MDM Medical Decision Making Medical Screen Exam Complete: Yes Emergency Medical Condition: Yes Medical Record Reviewed: Yes (Past history confirmed) Interpretation(s) CBC & BMP Diagram 01/25/18 15:05 Total Protein 8.4 H, Albumin 4.3, Calcium Level 9.4, Magnesium Level 2.0, Alkaline Phosphatase 57, Aspartate Amino Transf (AST/SGOT) 21, Alanine Aminotransferase (ALT/SGPT) 40, Total Bilirubin 0.7 Last 24 hours Impressions Chest X-Ray 01/25/18 1506 Signed Impressions: Service Date/Time: Thursday, January 25, 2018 15:25 - CONCLUSION: Minimal left base atelectasis. Otherwise negative. Presley Culp MD Differential Diagnosis A. fib with RVR, PE, SVT, a flutter Narrative Course EKG shows atrial fibrillation at 145 without STEMI criteria. We are currently out of Cardizem so will place on esmolol drip and titrate. Will check blood work and x-ray and closely monitor Heart rate still uncontrolled we will increase esmolol drip Heart rate still uncontrolled and maxed on esmolol drip will discuss with her door and arrival attendant Patient updated and agrees to admission Critical Care Narrative Aggregate critical care time was 40 minutes. Time to perform other separately billable procedures was not included in the critical care time. My time did not include minutes spent treating any other patients simultaneously or on activities that did not directly contribute to the patient's treatment. The services I provided to this patient were to treat and/or prevent clinically significant deterioration that could result in: Worsening tachycardia, shock I provided critical care services requiring my management, as noted below: Chart data review, documentation time, medication orders and management, vital sign assessments/reviewing monitor data, ordering and reviewing lab tests, ordering and interpreting/reviewing x-rays and diagnostic studies, care of the patient and discussion of the patient with the admitting physicians. Physician Communication Physician Communication dr recinos states to place on amiodarone drip without bolus in addition to esmolol and titrate down esmolol as tolerated with heart rate, will follow dr hennessy agrees to admit Diagnosis Primary Impression: Atrial fibrillation with RVR Additional Impression: Chest pain Qualified Codes: R07.9 - Chest pain, unspecified Admitting Information Admitting Physician Requests: it Rosario Matos MD Jan 25, 2018 15:30
[2018-01-25 15:34] LABS: BASOPHIL # 0.1 TH/MM3 (0-0.2); BASOPHIL % 0.5 % (0.0-2.0); EOSINOPHIL # 0.1 TH/MM3 (0-0.4); EOSINOPHIL % 0.9 % (0.0-4.0); HEMATOCRIT 47.8 % (35.0-46.0); HEMOGLOBIN 16.6 GM/DL (11.6-15.3); LYMPH % 16.5 % (9.0-44.0); LYMPHOCYTE # 2.1 TH/MM3 (1.0-4.8); MEAN CELL VOLUME 88.1 FL (80.0-100.0); MEAN CORPUSCULAR HEMOGLOBIN 30.7 PG (27.0-34.0); MEAN CORPUSCULAR HGB CONC 34.8 % (32.0-36.0); MEAN PLATELET VOLUME 8.5 FL (7.0-11.0); MONO % 12.9 % (0.0-8.0); MONOCYTE # 1.7 TH/MM3 (0-0.9); NEUT % 69.2 % (16.0-70.0); PLATELET COUNT 255 TH/MM3 (150-450); RED BLOOD COUNT 5.43 MIL/MM3 (4.00-5.30); RED CELL DISTRIBUTION WIDTH 12.7 % (11.6-17.2)
[2018-01-25 15:45] LABS: PROTHROMBIN TIME - PATIENT 10.5 SEC (9.8-11.6)
[2018-01-25] MEDS: ESMOLOL DRIP INJ PREMIX 250 ML IV PRN ×4 (15:45→18:02)
[2018-01-25 16:02] LABS: ALBUMIN 4.3 GM/DL (3.4-5.0); ALT (GPT) 40 U/L (10-53); AST (GOT) 21 U/L (15-37); BLOOD UREA NITROGEN 14 MG/DL (7-18); CALCIUM 9.4 MG/DL (8.5-10.1); CHLORIDE 106 MEQ/L (98-107); CREATININE 0.77 MG/DL (0.50-1.00); GLOMERULAR FILTRATION RATE 77 ML/MIN (>89); GLUCOSE,RANDOM 124 MG/DL (74-106); SODIUM (NA) 140 MEQ/L (136-145)
[2018-01-25 16:06] LABS: ALKALINE PHOSPHATASE 57 U/L (45-117); TOTAL BILIRUBIN ADULT 0.7 MG/DL (0.2-1.0); TOTAL PROTEIN 8.4 GM/DL (6.4-8.2); TROPONIN I LESS THAN 0.02 NG/ML (0.02-0.05)
[2018-01-25 16:22] LABS: D-DIMER 0.34 MG/L FEU (0.00-0.50)
[2018-01-25] MEDS ORDERED: MONT10TA2 PO (16:23)
[2018-01-25] MEDS ORDERED: COQ150CA PO (16:24)
[2018-01-25] MEDS ORDERED: ACETAMINOPHEN 325 MG TAB PO ONE (18:00)
--- NOTE | 2018-01-25 18:05 | RADRPT ---
EXAM DATE/TIME: 01/25/2018 15:25 [facility] COMPARISON: CHEST SINGLE AP, November 04, 2014, 7:50. INDICATIONS : Mid-chest pain and shortness of breath. MEDICAL HISTORY : Hypertension. Asthma. SURGICAL HISTORY : None. ENCOUNTER: Initial ACUITY: 1 day PAIN SCORE: 6/10 LOCATION: Bilateral chest FINDINGS: Trace left base atelectasis. No pleural effusion. No pneumothorax. Heart size stable, normal. CONCLUSION: Minimal left base atelectasis. Otherwise negative. Presley Culp MD on January 25, 2018 at 18:02 Board Certified Radiologist. This report was verified electronically.
[2018-01-25] MEDS ORDERED: LACTULOSE SYRUP 20 GM/30 ML CUP PO PRN (19:00)
[2018-01-25] MEDS ORDERED: ACETAMINOPHEN 325 MG TAB PO PRN (19:00)
[2018-01-25] MEDS ORDERED: ONDANSETRON HCL 4 MG/2 ML VIAL IVP PRN (19:00)
[2018-01-25] MEDS ORDERED: SODIUM CHLORIDE 0.9% FLUSH 10 ML FLUSH IV FLUSH PRN (19:00)
[2018-01-25] MEDS ORDERED: ESMOLOL DRIP INJ PREMIX 250 ML IV PRN (19:00)
[2018-01-25] MEDS ORDERED: SENNOSIDES 8.6 MG TAB PO PRN (19:00)
[2018-01-25] MEDS ORDERED: ZOLPIDEM TARTRATE 5 MG TAB PO PRN (19:00)
[2018-01-25] MEDS ORDERED: MAGNESIUM HYDROXIDE SUSP 30 ML CUP PO PRN (19:00)
[2018-01-25] MEDS ORDERED: BISACODYL 10 MG SUPP RECTAL PRN (19:00)
[2018-01-25] MEDS ORDERED: NALOXONE HCL 0.4 MG/ML AMP IV PUSH PRN (19:00)
[2018-01-25] MEDS ORDERED: AMIODARONE INJ 450 MG in DEXTROSE 5% IN WATE(EXCEL) INJ 241 ML IV PRN ×2 (19:18)
[2018-01-25] MEDS ORDERED: IMIQUIMOD 5% TOPICAL SCH (21:00)
[2018-01-25] MEDS: MONTELUKAST SODIUM 10 MG TAB PO SCH (21:24)
[2018-01-25] MEDS: SODIUM CHLORIDE 0.9% FLUSH 10 ML FLUSH IV FLUSH SCH (21:24)
[2018-01-25] MEDS: APIXABAN 5 MG TABLET PO SCH (21:25)
--- NOTE | 2018-01-25 22:06 | HHI.HP ---
HPI Service [facility] Hospitalists Primary Care Physician Nikolai Arzate M.D. Admission Diagnosis afib with rvr Travel History International Travel<30 Days: No Contact w/Intl Traveler <30 Da: No Traveled to Known Affected Are: No History of Present Illness Pleasant 57 yo CF presents for evaluation of chest pain and palpitations. She has history of atrial fibrillation and underwent ablation with Dr. Vaca in November of this year. Since then she has been on flecainide, and eliquis. She was doing well up until yesterday when she started to get heavy retrosternal chest pressure and palpitations which was intermittent continueing until today. No provocative or palliative factors. She reports she had a clean left heart catherization in 2013. Her pulse at home was 90. She presented to the ER today where she was found to be in atrial fibrillation with RVR and was started on esmolol drip as the hospital was out of [facility] Despite max dose of esmolol, heart rate remained 120, thus her golf cart assembler was contacted and she was recommended to be started on amiodarone drip. Blood pressure at time of my evaluation was 95/61, heart rate 120. She denies current chest pain or palpitations. Initial troponin was negative, EKG showed afib with RVR. Her PCP is Dr. Arzate, she just started seeing him as she switched to [facility] in November. She reports difficulty with copays. However she has been taking all of her medications as prescribed. Review of Systems Constitutional: DENIES: Fever, Chills Eyes: DENIES: Diplopia, Eye pain Respiratory: DENIES: Cough, Wheezing Cardiovascular: COMPLAINS OF: Chest pain, Palpitations Gastrointestinal: DENIES: Abdominal pain, Vomiting Genitourinary: DENIES: Urgency, Dysuria Integumentary: DENIES: Pruritus, Rash Hematologic/lymphatic: DENIES: Lymphadenopathy Neurologic: DENIES: Headache, Localized weakness Psychiatric: DENIES: Anxiety, Confusion Past Family Social History Past Medical History HTN HLD afib asthma - followed by Dr. Campo history of migraines history of thyroid nodules history of portal vein thrombosis Reported Medications Allergies Coded Allergies Type Severity Reaction Last Updated Verified No Known Allergies Allergy Unknown 11/26/17 No Active Scripts Medications Dose Route/Sig Max Daily Dose Days Date Category Coq10 (Coenzyme Q10 (Ubidecarenone)) 50 Mg Cap 50 Mg PO DAILY 01/25/18 Reported Singulair (Montelukast Sodium) 10 Mg Tab 10 Mg PO HS 01/25/18 Reported Ibuprofen 600 Mg Tab 600 Mg PO Q6H PRN 7 11/27/17 Rx Imiquimod Topical (Imiquimod) 5% Cream 1 Applic TOPICAL HS 11/26/17 Reported [Zyrtec] 10 Mg PO DAILY 11/26/17 Reported Vitamin D3 (Cholecalciferol) 2,000 Unit Cap 2,000 Units PO BID 11/26/17 Reported Vitamin B-12 (Cyanocobalamin) 1,000 Mcg Tab 1,000 Mcg PO DAILY 11/26/17 Reported Eliquis (Apixaban) 5 Mg Tab 5 Mg PO BID 11/26/17 Reported Lexapro (Escitalopram Oxalate) 10 Mg Tab 10 Mg PO DAILY 11/26/17 Reported Flecainide (Flecainide Acetate) 50 Mg Tab 50 Mg PO BID 11/26/17 Reported [place]-3 Fish Oil/Vitamin (Fish Oil-Cholecalciferol) 1,000-1,000 Mg Cap 1 Cap PO DAILY 11/26/17 Reported Crestor (Rosuvastatin Calcium) 10 Mg Tab 10 Mg PO DAILY 11/26/17 Reported Biotin 5 Mg Cap 5 Mg PO 11/26/17 Reported Allergies: Coded Allergies: No Known Allergies (Unverified Allergy, Unknown, 11/26/17) Family History thyroid problems Social History no tobacco or etoh. . 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 Physical Exam Vital Signs Vital Signs Date Time Temp Pulse Resp B/P (MAP) Pulse Ox O2 Delivery O2 Flow Rate FiO2 01/25/18 19:54 137 98/61 01/25/18 19:54 139 98/61 01/25/18 19:16 137 18 93/72 (79) 94 Room Air 01/25/18 18:02 123 106/54 01/25/18 16:19 127 112/84 01/25/18 16:16 123 16 109/83 (92) 96 Room Air 112/84 (93) 01/25/18 15:54 124 117/69 01/25/18 15:45 136 120/67 01/25/18 15:35 97 Room Air 01/25/18 15:35 130 18 120/67 (84) 96 Room Air 01/25/18 14:54 98.9 136 18 146/89 (108) 95 Physical Exam GENERAL: This is a well-nourished, well-developed patient, in no apparent distress. SKIN: No rashes, ecchymoses or lesions. Cool and dry. HEAD: Atraumatic. Normocephalic. EYES: Pupils equal round and reactive. Extraocular motions intact. No scleral icterus. No injection or drainage. NECK: Trachea midline. No JVD or lymphadenopathy. Supple, nontender, no meningeal signs. CARDIOVASCULAR: Irregularly irregular rate and rhythm without murmurs, gallops, or rubs. RESPIRATORY: Clear to auscultation. Breath sounds equal bilaterally. No wheezes , rales, or rhonchi. GASTROINTESTINAL: Abdomen soft, non-tender, nondistended. No hepato-splenomegaly , or palpable masses. No guarding. MUSCULOSKELETAL: Extremities without clubbing, cyanosis, or edema. No joint tenderness, effusion, or edema noted. NEUROLOGICAL: Awake and alert. Motor and sensory grossly within normal limits. Normal speech. Laboratory Laboratory Tests Test 01/25/18 15:05 White Blood Count 13.0 Red Blood Count 5.43 Hemoglobin 16.6 Hematocrit 47.8 Mean Corpuscular Volume 88.1 Mean Corpuscular Hemoglobin 30.7 Mean Corpuscular Hemoglobin Concent 34.8 Red Cell Distribution Width 12.7 Platelet Count 255 Mean Platelet Volume 8.5 Neutrophils (%) (Auto) 69.2 Lymphocytes (%) (Auto) 16.5 Monocytes (%) (Auto) 12.9 Eosinophils (%) (Auto) 0.9 Basophils (%) (Auto) 0.5 Neutrophils # (Auto) 9.0 Lymphocytes # (Auto) 2.1 Monocytes # (Auto) 1.7 Eosinophils # (Auto) 0.1 Basophils # (Auto) 0.1 CBC Comment DIFF FINAL Differential Comment Prothrombin Time 10.5 Prothromb Time International Ratio 1.0 Activated Partial Thromboplast Time 26.9 D-Dimer Quantitative (PE/DVT) 0.34 Blood Urea Nitrogen 14 Creatinine 0.77 Random Glucose 124 Total Protein 8.4 Albumin 4.3 Calcium Level 9.4 Magnesium Level 2.0 Alkaline Phosphatase 57 Aspartate Amino Transf (AST/SGOT) 21 Alanine Aminotransferase (ALT/SGPT) 40 Total Bilirubin 0.7 Sodium Level 140 Potassium Level 3.9 Chloride Level 106 Carbon Dioxide Level 22.0 Anion Gap 12 Estimat Glomerular Filtration Rate 77 Total Creatine Kinase 175 Creatine Kinase MB 0.8 Troponin I LESS THAN 0.02 B-Type Natriuretic Peptide 88 Result Diagram: 01/25/18 1505 01/25/18 1505 Imaging Last Impressions Chest X-Ray 01/25/18 1506 Signed Impressions: Service Date/Time: Thursday, January 25, 2018 15:25 - CONCLUSION: Minimal left base atelectasis. Otherwise negative. MD Amanda Townsend VTE Risk Assessment Caper[place] VTE Risk Assessment: Mod/High Risk (score >= 2) Caprini Risk Assessment Model Point Value = 1 Point Value = 2 Point Value = 3 Point Value = 5 Age 41-60 Minor surgery BMI > 25 kg/m2 Swollen legs Varicose veins or History of unexplained or recurrent spontaneous Oral contraceptives or hormone replacement Sepsis (< 1 month) Serious lung disease, including pneumonia (< 1 month) Abnormal pulmonary function Acute myocardial infarction Congestive heart failure (< 1 month) History of inflammatory bowel disease Medical patient at bed rest Age 61-74 Arthroscopic surgery Major open surgery (> 45 min) Laparoscopic surgery (> 45 min) Malignancy Confined to bed (> 72 hours) Immobilizing plaster cast Central venous access Age >= 75 History of VTE Family history of VTE Factor V Leiden Prothrombin [id number] Lupus anticoagulant Anticardiolipin antibodies Elevated serum homocysteine Heparin-induced thrombocytopenia Other congenital or acquired thrombophilia Stroke (< 1 month) Elective arthroplasty Hip, pelvis, or leg fracture Acute spinal cord injury (< 1 month) Prophylaxis Regimen Total Risk Factor Score Risk Level Prophylaxis Regimen 0-1 Low Early ambulation 2 Moderate Order ONE of the following: *Sequential Compression Device (SCD) *Heparin 5000 units SQ BID 3-4 Higher Order ONE of the following medications: *Heparin 5000 units SQ TID *Enoxaparin/Lovenox 40 mg SQ daily (WT < 150 kg, CrCl > 30 mL/min) *Enoxaparin/Lovenox 30 mg SQ daily (WT < 150 kg, CrCl > 10-29 mL/min) *Enoxaparin/Lovenox 30 mg SQ BID (WT < 150 kg, CrCl > 30 mL/min) AND/OR *Sequential Compression Device (SCD) 5 or more Highest Order ONE of the following medications: *Heparin 5000 units SQ TID (Preferred with Epidurals) *Enoxaparin/Lovenox 40 mg SQ daily (WT < 150 kg, CrCl > 30 mL/min) *Enoxaparin/Lovenox 30 mg SQ daily (WT < 150 kg, CrCl > 10-29 mL/min) *Enoxaparin/Lovenox 30 mg SQ BID (WT < 150 kg, CrCl > 30 mL/min) AND *Sequential Compression Device (SCD) Assessment and Plan Problem List: (1) Atrial fibrillation with RVR ICD Codes: I48.91 - Atrial fibrillation with RVR Status: Acute (2) Chest pain ICD Codes: R07.9 - Chest pain, unspecified Status: Acute Assessment and Plan She will be admitted to ICU as she is on two drips with marginal blood pressure. Dr. Vaca is consulted. Continue eliquis. Chest pain is likely secondary to the afib, but we will trend troponins. Hold BP meds. Hold bronchodilators to avoid worsening the tachycardia. NPO until evaluated by cardiology. Repeat CBC and BMP in a.m. Problem Qualifiers (1) Chest pain: Qualified Codes: R07.9 - Chest pain, unspecified Rafaela Golden MD Jan 25, 2018 22:06
--- NOTE | 2018-01-25 23:34 | EKG ---
Date Performed: 01/25/2018 Time Performed: 15:10:28 PTAGE: 57 years EKG: AFIB WITH RAPID VENTRICULAR RESPONSE NONSPECIFIC T-WAVE ABNORMALITY ABNORMAL RHYTHM ECG PREVIOUS TRACING : 11/27/2017 06.40 Compared to previous tracing, AFib with RVR and non-specif ic ST/T wave changes DOCTOR: Maxime Lopez Interpretating Date/Time 01/25/2018 23:33:34
[2018-01-26] VITALS (12 sets, daily range): BP systolic 97–129; BP diastolic 60–79; PULSE 59–69; RESP 16–18; TEMP 97.9–98.2; O2SAT 91–95
[2018-01-26 04:43] LABS: BICARBONATE 26.3 MEQ/L (21.0-32.0); BLOOD UREA NITROGEN 16 MG/DL (7-18); CHLORIDE 109 MEQ/L (98-107); CREATININE 0.69 MG/DL (0.50-1.00); GLOMERULAR FILTRATION RATE 87 ML/MIN (>89); GLUCOSE,RANDOM 106 MG/DL (74-106); SODIUM (NA) 143 MEQ/L (136-145)
[2018-01-26 04:47] LABS: TROPONIN I LESS THAN 0.02 NG/ML (0.02-0.05)
[2018-01-26] MEDS ORDERED: NON-FORMULARY DRUG (Fish Oil-Cholecalciferol (Omega-3 Fish Oil/Vitamin) 1 CAP) PO SCH (09:00)
[2018-01-26] MEDS: APIXABAN 5 MG TABLET PO SCH ×2 (10:20→21:17)
[2018-01-26] MEDS: ATORVASTATIN 20 MG TAB PO SCH (10:20)
[2018-01-26] MEDS: ESCITALOPRAM OXALATE 10 MG TAB PO SCH (10:20)
[2018-01-26] MEDS: SODIUM CHLORIDE 0.9% FLUSH 10 ML FLUSH IV FLUSH SCH ×2 (10:21→21:17)
[2018-01-26] MEDS ORDERED: AMIODARONE INJ 450 MG in SODIUM CHLOR 0.9% (EXCEL) INJ 250 ML IV PRN (15:45)
--- NOTE | 2018-01-26 16:24 | HHI.PR ---
Subjective Remarks Pt has NO new complaints. Pt denies cheat pain, palpitations, SOB, or n/v. Objective Vitals Vital Signs Date Time Temp Pulse Resp B/P (MAP) Pulse Ox O2 Delivery O2 Flow Rate FiO2 01/26/18 16:01 63 106/75 01/26/18 15:07 66 01/26/18 15:07 94 Room Air 01/26/18 15:00 97.9 69 16 106/75 (85) 91 01/26/18 11:00 98.2 67 16 104/60 (75) 92 01/26/18 11:00 67 01/26/18 11:00 92 Room Air 01/26/18 07:20 61 01/26/18 07:00 98.1 60 16 124/69 (87) 94 01/26/18 07:00 94 Room Air 01/26/18 03:39 98.2 61 18 97/60 (72) 95 01/26/18 03:39 95 Nasal Cannula 2.00 01/26/18 03:38 62 01/26/18 01:15 60 01/25/18 23:35 94 Nasal Cannula 2.00 01/25/18 23:35 97.9 78 18 104/64 (77) 95 01/25/18 23:00 100 01/25/18 22:15 94 Nasal Cannula 2.00 01/25/18 22:11 94 Nasal Cannula 2.00 01/25/18 21:45 105 84/70 01/25/18 21:28 108 01/25/18 21:00 97.9 104 18 98/53 (68) 94 01/25/18 21:00 98 100/65 01/25/18 21:00 98 100/65 01/25/18 19:54 137 98/61 01/25/18 19:54 139 98/61 01/25/18 19:16 137 18 93/72 (79) 94 Room Air 01/25/18 18:02 123 106/54 Result Diagram: 01/25/18 1505 01/26/18 0318 Imaging Last Impressions Chest X-Ray 01/25/18 1506 Signed Impressions: Service Date/Time: Thursday, January 25, 2018 15:25 - CONCLUSION: Minimal left base atelectasis. Otherwise negative. Presley Culp MD Objective Remarks GENERAL: This is a well-nourished, well-developed patient, in no apparent distress. CARDIOVASCULAR: Regular rate and rhythm without murmurs, gallops, or rubs. RESPIRATORY: Clear to auscultation. Breath sounds equal bilaterally. No wheezes , rales, or rhonchi. GASTROINTESTINAL: Abdomen soft, non-tender, nondistended. Normal active bowel sounds MUSCULOSKELETAL: Extremities without clubbing, cyanosis, or edema. NEURO: Alert & Oriented x4 to person, place, time, situation. Moves all ext x4 A/P Problem List: (1) Atrial fibrillation with RVR ICD Codes: I48.91 - Atrial fibrillation with RVR Status: Chronic Plan: - Pt underwent A. Fib ablation with Dr. Avilez 11/2017 - Pt prescribed flecainide and eliquis - Pt admitted to [facility] with c/o Chest pressure and palpitations. - In the ER, pt found to be in A. Fib with RVR - started on esmolol drip as the hospital was out of [facility]. 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 Avilez (01/26/18). - Okay to convert pt to PO amiodarone 400mg TID x 3d, then 400mg BID x 2d, then 400mg daily - will observe overnight. If pt remains stable then, D/C to home 01/27 - DVT prophylaxis - supportive care. (2) Chest pain ICD Codes: R07.9 - Chest pain, unspecified Status: Acute Plan: - see above - serial cardiac enzymes were negative - serial EKGs were negative. Problem Qualifiers (1) Chest pain: Qualified Codes: R07.9 - Chest pain, unspecified Abel Good DO Jan 26, 2018 16:24
[2018-01-26] MEDS ORDERED: AMIO400T PO (16:38)
[2018-01-26] MEDS: AMIODARONE 200 MG TAB PO SCH (16:56)
[2018-01-26] MEDS: MONTELUKAST SODIUM 10 MG TAB PO SCH (21:17)
[2018-01-26] MEDS: CETIRIZINE HCL 10 MG TAB PO SCH (21:17)
[2018-01-27] VITALS (7 sets, daily range): BP systolic 109–128; BP diastolic 65–78; PULSE 57–75; RESP 14–16; TEMP 97.7–98.1; O2SAT 92–95
[2018-01-27 05:37] LABS: AUTOMATED NEUTROPHIL # 5.7 TH/MM3 (1.8-7.7); BASOPHIL # 0.1 TH/MM3 (0-0.2); BASOPHIL % 0.8 % (0.0-2.0); EOSINOPHIL # 0.3 TH/MM3 (0-0.4); HEMOGLOBIN 15.1 GM/DL (11.6-15.3); LYMPH % 20.5 % (9.0-44.0); LYMPHOCYTE # 1.8 TH/MM3 (1.0-4.8); MEAN CORPUSCULAR HGB CONC 34.5 % (32.0-36.0); MEAN PLATELET VOLUME 8.8 FL (7.0-11.0); MONO % 9.5 % (0.0-8.0); MONOCYTE # 0.8 TH/MM3 (0-0.9); NEUT % 66.2 % (16.0-70.0); PLATELET COUNT 181 TH/MM3 (150-450); RED BLOOD COUNT 4.89 MIL/MM3 (4.00-5.30); RED CELL DISTRIBUTION WIDTH 12.8 % (11.6-17.2); WHITE BLOOD COUNT 8.6 TH/MM3 (4.0-11.0)
[2018-01-27 06:03] LABS: BICARBONATE 24.8 MEQ/L (21.0-32.0); CALCIUM 8.9 MG/DL (8.5-10.1); CREATININE 0.65 MG/DL (0.50-1.00); MAGNESIUM 2.1 MG/DL (1.5-2.5)
[2018-01-27 06:14] LABS: FREE T4 1.2 NG/DL (0.76-1.46)
[2018-01-27] MEDS: CETIRIZINE HCL 10 MG TAB PO SCH (09:00)
--- NOTE | 2018-01-27 09:34 | RADRPT ---
EXAM DATE/TIME: 01/27/2018 09:21 [facility] COMPARISON: CHEST SINGLE AP, January 25, 2018, 15:25. INDICATIONS : Shortness of breath and chest pain two days ago (no current chest pain). MEDICAL HISTORY : Hypertension. Asthma. Cardiac ablation. SURGICAL HISTORY : None. ENCOUNTER: Subsequent ACUITY: 3 days PAIN SCORE: 0/10 LOCATION: Bilateral chest FINDINGS: PA and lateral views of the chest demonstrate the lungs to be symmetrically aerated without evidence of mass, infiltrate or effusion. The cardiomediastinal contours are unremarkable. Osseous structure s are intact. CONCLUSION: Normal examination. Ricardo Lyon MD on January 27, 2018 at 9:31 Board Certified Radiologist. This report was verified electronically.
[2018-01-27] MEDS: AMIODARONE 200 MG TAB PO SCH ×2 (09:52→11:28)
[2018-01-27] MEDS: ESCITALOPRAM OXALATE 10 MG TAB PO SCH (09:52)
[2018-01-27] MEDS: ATORVASTATIN 20 MG TAB PO SCH (09:53)
[2018-01-27] MEDS: SODIUM CHLORIDE 0.9% FLUSH 10 ML FLUSH IV FLUSH SCH (09:53)
[2018-01-27] MEDS: APIXABAN 5 MG TABLET PO SCH (09:53)
--- NOTE | 2018-01-27 10:37 | HHI.DCPOC ---
Discharge Care Plan Diagnosis: (1) Atrial fibrillation with RVR Goals to Promote Your Health * To prevent worsening of your condition and complications * To maintain your health at the optimal level Directions to Meet Your Goals Take your medications as prescribed Follow your dietary instruction Follow activity as directed Keep your appointments as scheduled Take your immunizations and boosters as scheduled If your symptoms worsen call your PCP, if no PCP go to Urgent Care Center or Emergency Room Smoking is Dangerous to Your Health. Avoid second hand smoke Call the 24-hour hour crisis hotline for domestic abuse at - PO amiodarone 400mg TID x 3d, then 400mg BID x 2d, then 400mg daily - f/u with Dr. Avilez in 1 week - keep upcoming f/u with PCP, Dr. Arzate, and Pulm Medicine, Dr. Campo. Cat Ruiz Jan 27, 2018 10:37 Abel Good DO Jan 27, 2018 11:36
--- NOTE | 2018-01-27 10:44 | HHI.DS ---
Discharge Summary Admission Date Jan 25, 2018 at 18:40 Discharge Date: Jan 27, 2018 Admitting Diagnosis afib with rvr (1) Atrial fibrillation with RVR Diagnosis: Principal ICD Codes: I48.91 - Atrial fibrillation with RVR Status: Chronic (2) Chest pain Diagnosis: Principal ICD Codes: R07.9 - Chest pain, unspecified Status: Acute Consultants None Procedures None Brief History Pleasant 57 yo CF presents for evaluation of chest pain and palpitations. She has history of atrial fibrillation and underwent ablation with Dr. Vaca in November of this year. Since then she has been on flecainide, and eliquis. She was doing well up until yesterday when she started to get heavy retrosternal chest pressure and palpitations which was intermittent continueing until today. No provocative or palliative factors. She reports she had a clean left heart catherization in 2013. Her pulse at home was 90. She presented to the ER today where she was found to be in atrial fibrillation with RVR and was started on esmolol drip as the hospital was out of specialty hospital at [place]. Despite max dose of esmolol, heart rate remained 120, thus her animal keeper head was contacted and she was recommended to be started on amiodarone drip. Blood pressure at time of my evaluation was 95/61, heart rate 120. She denies current chest pain or palpitations. Initial troponin was negative, EKG showed afib with RVR. Her PCP is Dr. Arzate, she just started seeing him as she switched to [facility] in November. She reports difficulty with copays. However she has been taking all of her medications as prescribed. CBC/BMP: 01/27/18 0430 01/27/18 0430 Significant Findings Laboratory Tests Test 01/25/18 15:05 01/25/18 22:13 01/26/18 03:18 01/27/18 04:30 White Blood Count 13.0 TH/MM3 (4.0-11.0) Red Blood Count 5.43 MIL/MM3 (4.00-5.30) Hemoglobin 16.6 GM/DL (11.6-15.3) Hematocrit 47.8 % (35.0-46.0) Monocytes (%) (Auto) 12.9 % (0.0-8.0) 9.5 % (0.0-8.0) Neutrophils # (Auto) 9.0 TH/MM3 (1.8-7.7) Monocytes # (Auto) 1.7 TH/MM3 (0-0.9) Random Glucose 124 MG/DL (74-106) Total Protein 8.4 GM/DL (6.4-8.2) Estimat Glomerular Filtration Rate 77 ML/MIN (>89) 87 ML/MIN (>89) Troponin I LESS THAN 0.02 NG/ML LESS THAN 0.02 NG/ML LESS THAN 0.02 NG/ML Chloride Level 109 MEQ/L (98-107) Imaging Last Impressions Chest X-Ray 01/27/18 0800 Signed Impressions: Service Date/Time: Saturday, January 27, 2018 09:21 - CONCLUSION: Normal examination. Ricardo Lyon MD PE at Discharge GENERAL: This is a well-nourished, well-developed patient, in no apparent distress. CARDIOVASCULAR: Regular rate and rhythm RESPIRATORY: Clear to auscultation. Breath sounds equal bilaterally GASTROINTESTINAL: Abdomen soft, non-tender, nondistended. Normal active bowel sounds MUSCULOSKELETAL: Extremities without clubbing, cyanosis, or edema. NEURO: Alert & Oriented x4 to person, place, time, situation. Moves all ext x4 Hospital Course Atrial fibrillation with RVR Initially admitted to ICU a on Esmolol and Amiodarone drip Rhythm converted to SR case Dr. Good discussed the case with Dr. Thi Avilez. Recommended start Amiodarone PO with taper instructions Continue eliquis. TSH 2.41 and Free T4 1.2 Chest pain resolved after HR controlled likely secondary to A Fib RVR troponin < 0.02 x 3 Patient HR controlled with PO Amiodarone. Patient stable DC home with Amiodarone taper per Dr. Avilez's recommendations Patient to follow up with Dr Avilez for further management and Amiodarone dosing Pt Condition on Discharge: Stable Discharge Disposition: Discharge Home Discharge Instructions DIET: Follow Instructions for: Heart Healthy Diet Activities you can perform: Regular-No Restrictions Follow up Referrals: Cardiology - 1 Week with Aliyah Avilez MD PCP Follow-up - [address] Arzate New Medications: Amiodarone (Amiodarone) 400 Mg Tab 400 MG PO DIRECTED for Regulate Heart Beat, #30 TAB 0 Refills Take 400 mg three times a day for three days, then 400 mg two times a day for three days, then 400 mg once a day, then follow up with Dr. Avilez for further dosing Continued Medications: Apixaban (Eliquis) 5 Mg Tab 5 MG PO BID for Blood Clot Prevention, #60 TAB 0 Refills Biotin (Biotin) 5 Mg Cap 5 MG PO for Nutritional Supplement, #1 BOTTLE 0 Refills Cholecalciferol (Vitamin D3) 2,000 Unit Cap 2000 UNITS PO BID for Nutritional Supplement, #1 BOTTLE 0 Refills Coenzyme Q10 (Ubidecarenone) (Coq10) 50 Mg Cap 50 MG PO DAILY Cyanocobalamin (Vitamin B-12) 1,000 Mcg Tab 1000 MCG PO DAILY for Nutritional Supplement, #1 BOTTLE 0 Refills Escitalopram (Lexapro) 10 Mg Tab 10 MG PO DAILY, #30 TAB 0 Refills Fish Oil-Cholecalciferol ([place]-3 Fish Oil/Vitamin) 1,000-1,000 Mg Cap 1 CAP PO DAILY for Nutritional Supplement, CAP 0 Refills Imiquimod Topical (Imiquimod Topical) 5% Cream 1 APPLIC TOPICAL HS, #1 GM 0 Refills Montelukast (Singulair) 10 Mg Tab 10 MG PO HS, #30 TAB 0 Refills Rosuvastatin (Crestor) 10 Mg Tab 10 MG PO DAILY for Cholesterol Management, #30 TAB 0 Refills [Zyrtec] () 10 MG PO DAILY Discontinued Medications: Flecainide (Flecainide) 50 Mg Tab 50 MG PO BID for Regulate Heart Beat, #60 TAB 0 Refills Ibuprofen (Ibuprofen) 600 Mg Tab 600 MG PO Q6H PRN for CHEST PAIN for 7 Days, #28 TAB Additional Information Patient examined. Assessment and plan formulated with Cat PARSONS-C. I agree with the above. - Case d/w Cardiology, Dr. Avilez (01/26/18). - PO amiodarone 400mg TID x 3d, then 400mg BID x 2d, then 400mg daily - f/u with Dr. Avilez in 1 week - keep upcoming f/u with PCP, Dr. Arzate, and Pulm Medicine, Dr. Campo. Cat Ruiz Jan 27, 2018 10:44 Abel Good DO Jan 27, 2018 11:33
== END 2018-01-27 12:00 | disposition home or self-care (01) | DRG 310 ==
LOC: NEPE 14:50 → NEDA 18:40 → HCVI 20:56
PROVIDERS: ADMIT Hospitalist; ATTEND Hospitalist
DX: I48.91 Unspecified atrial fibrillation (principal); I10 Essential (primary) hypertension; J45.909 Unspecified asthma, uncomplicated; E78.5 Hyperlipidemia, unspecified; Z79.01 Long term (current) use of anticoagulants; Z79.899 Other long term (current) drug therapy
CPT/HCPCS: 71045; 71046; 80048; 80053; 82550; 82552; 83735; 83880; 84439; 84443; 84484; 85025; 85379; 85610; 85730; 93005; 96365; 96366; J0282; J7050; J7060